=== PATIENT | male | born 1985 | race Caucasian/White ===

== ENCOUNTER 2019-02-27 11:30 | Emergency (ER) | payer MEDICAID ==
[~2019-02-27] VITALS: Ht 162.6 cm; Wt 66.0 kg
[2019-02-27 11:32] VITALS: BP 120/81
[2019-02-27] MEDS ORDERED: DIPHENHYDRAMINE 50 MG CAPSULE ONE (11:46)
[2019-02-27] MEDS ORDERED: FAMOTIDINE 20 MG TABLET ONE (11:46)
[2019-02-27] MEDS ORDERED: DIPHENHYDRAMINE 25 MG CAPSULE PO ONE (12:00)
[2019-02-27] MEDS ORDERED: FAMOTIDINE 20 MG TABLET PO ONE (12:00)
== END 2019-02-27 12:47 | disposition home or self-care (01) ==
LOC: ED 12:30
DX: L50.0 Allergic urticaria (principal)
CPT/HCPCS: 99284; J7512; Q0163